=== PATIENT | female | born 1965 | race Hispanic/Latino ===

== ENCOUNTER → 2017-10-25 | Outpatient (CLI) | payer BC | END | disposition home or self-care (01) | LOC: RAH 15:05 | PROVIDERS: ATTEND Obstetrics & Gynecology | DX: Z12.31 Encounter for screening mammogram for malignant neoplasm of breast (principal) | CPT/HCPCS: 77067 ==

== ENCOUNTER → 2018-10-29 | Outpatient (CLI) | payer BC | END | disposition home or self-care (01) | LOC: RAH 15:33 | PROVIDERS: ATTEND Obstetrics & Gynecology | DX: Z12.31 Encounter for screening mammogram for malignant neoplasm of breast (principal) | CPT/HCPCS: 77067 ==

== ENCOUNTER 2023-04-17 07:01 | Day surgery (SDC) | payer BC ==
[2023-04-12 10:25] LABS: BASOPHILS % (AUTO) 0.3 % (0.0-5.0); EOSINOPHILS % (AUTO) 1.6 % (0.0-8.0); HEMATOCRIT 39.6 % (36-48); LYMPHOCYTES % (AUTO) 31.7 % (21.0-51.0); MEAN CORPUSCULAR HGB CONC 32.8 g/dL (32.0-36.0); MEAN CORPUSCULAR VOLUME 91.2 fL (79-99); NEUTROPHILS % (AUTO) 60.1 % (40.0-77.0); PLATELET COUNT (AUTO) 162 K/uL (130-400); RED BLOOD CELL COUNT(AUTO) 4.34 MIL/uL (4.00-5.50); WHITE BLOOD COUNT (AUTO) 6.7 K/uL (4.8-10.8)
[2023-04-12 10:26] LABS: APPEARANCE,URINE CLEAR (CLEAR); BILIRUBIN,URINE NEGATIVE (NEGATIVE); COLOR,URINE LIGHT-YELLOW (YELLOW); GLUCOSE, URINE (UA) NEGATIVE (NEGATIVE); KETONES,URINE NEGATIVE (NEGATIVE); LEUKOCYTE ESTERASE ,URINE 25 Leu/uL (NEGATIVE); NITRATE,URINE NEGATIVE (NEGATIVE); OCCULT BLOOD,URINE NEGATIVE (NEGATIVE); PH,URINE 5.5 (5.0-8.0); PROTEIN,URINE NEGATIVE (NEGATIVE); UROBILINOGEN,URINE 0.2 mg/dL (0.2-1.0)
[2023-04-12 10:38] LABS: CREATININE 0.7 mg/dL (0.5-1.5); POTASSIUM 3.6 mmol/L (3.5-5.1); TOTAL PROTEIN, SERUM 8.4 g/dL (6.0-8.3)
[2023-04-12 10:39] LABS: INR 0.94 (0.85-1.15)
[2023-04-12 10:40] VITALS: BP 156/72
[2023-04-12 10:41] LABS: PARTIAL THROMBOPLASTIN TIME 29.2 SEC (26.3-35.5)
[2023-04-12 10:55] LABS: BACTERIA,URINE RARE /HPF (None Seen); MUCUS,URINE RARE LPF (None Seen); RBC,URINE 0-1 /HPF (0-1); SQUAMOUS EPITHELIAL CELL,UR RARE /HPF (0-2)
[~2023-04-17] VITALS: Ht 149.9 cm; Wt 70.6 kg
[2023-04-17] VITALS (18 sets, daily range): BP systolic 94–132; BP diastolic 44–70
[~2023-04-17 07:01] MED LIST: ENAL1TAB PO; ERGO500093 PO; ESTR0.5T PO; LEVO88TA7 PO; METF-444 PO; OMEP40CA21 PO; PIOG30TA70 PO; ROSU20TA73 PO
[2023-04-17] MEDS ORDERED: 0.9%NACL 1000ML 1,000 ML IV ONE (08:30)
[2023-04-17] MEDS ORDERED: CEFAZOLIN SODIUM 1 GM VIAL ONE (08:30)
[2023-04-17] MEDS ORDERED: SUCCINYLCHOLINE CHLORIDE 20 MG/ML 10 ML VIAL ONE (11:02)
[2023-04-17] MEDS ORDERED: ONDANSETRON 4MG INJ ONE (11:03)
[2023-04-17] MEDS ORDERED: FENTANYL CITRATE PF 50 MCG/1 ML 2ML VIAL ONE (11:03)
[2023-04-17] MEDS ORDERED: MIDAZOLAM HCL 1 MG/ML 2ML VIAL ONE (11:03)
[2023-04-17] MEDS ORDERED: PROPOFOL 10 MG/ML 20ML VIAL IV ONE (11:03)
[2023-04-17] MEDS ORDERED: ROCURONIUM 10MG/1ML SYR 10 MG/ML ML ONE (11:08)
[2023-04-17] MEDS ORDERED: BUPIVACAINE/PF 0.5% 10ML VIAL ONE (11:13)
[2023-04-17] MEDS ORDERED: CEFAZOLIN SODIUM 2 GM VIAL IVPB ONE (11:30)
[2023-04-17] MEDS ORDERED: EPHEDRINE SULFATE 50 MG/ML AMPULE ONE (11:59)
[2023-04-17] MEDS ORDERED: GLYCOPYRROLATE 1 MG/5 ML SYRINGE ONE (12:34)
[2023-04-17] MEDS ORDERED: NEOSTIGMINE 5MG/5ML SYR IV ONE (12:34)
[2023-04-17] MEDS ORDERED: MEPERIDINE-PF 25 MG/ML SYG ONE (12:57)
== END 2023-04-17 14:20 | disposition home or self-care (01) ==
LOC: DAH 07:01
PROVIDERS: ATTEND Student in an Organized Health Care Education/Training Program
DX: D17.1 Benign lipomatous neoplasm of skin and subcutaneous tissue of trunk (principal); I10 Essential (primary) hypertension; E11.9 Type 2 diabetes mellitus without complications; E66.9 Obesity, unspecified; Z90.89 Acquired absence of other organs; Z98.51 Tubal ligation status; Z90.710 Acquired absence of both cervix and uterus; Z98.890 Other specified postprocedural states; Z82.49 Family history of ischemic heart disease and other diseases of the circulatory system; Z83.3 Family history of diabetes mellitus; Z80.0 Family history of malignant neoplasm of digestive organs; Z79.84 Long term (current) use of oral hypoglycemic drugs; Z79.890 Hormone replacement therapy; Z79.01 Long term (current) use of anticoagulants; Z79.899 Other long term (current) drug therapy; Z68.27 Body mass index [BMI] 27.0-27.9, adult
CPT/HCPCS: 80053; 85025; 85610; 85730; 87426; 81001; 36415; 27043; 82948 ×2; A6260; A4663; A4452; J3010; J0690 ×2; J3490 ×3; J2710; J0330; J7030; J2250; J2704; J2405; J2175; A4215; A4223; A4222; A4221; A4600

== ENCOUNTER → 2023-10-16 | Outpatient (CLI) | payer BC ==
[~2023-10-16] MED LIST changes: -ESTR0.5T PO; +ESTR0.5T2 PO
== END | disposition home or self-care (01) ==
LOC: RAH 14:13
PROVIDERS: ATTEND Nurse Practitioner
DX: Z12.31 Encounter for screening mammogram for malignant neoplasm of breast (principal)
CPT/HCPCS: 77067

== ENCOUNTER 2024-01-31 22:04 | Inpatient (IN) | payer BC ==
[~2024-01-31] VITALS: Ht 149.9 cm; Wt 72.1 kg
[2024-01-31 22:26] LABS: BASOPHILS # (AUTO) 0.05 K/uL (0.00-0.20); BASOPHILS % (AUTO) 0.4 % (0.0-5.0); EOSINOPHILS # (AUTO) 0.13 K/uL (0.00-0.70); EOSINOPHILS % (AUTO) 0.9 % (0.0-8.0); HEMATOCRIT 35.4 % (36-48); IMMATURE GRANULOCYTE ABSOLUTE 0.09 K/uL (0-1); LYMPHOCYTES % (AUTO) 21.4 % (21.0-51.0); MEAN CORPUSCULAR HEMOGLOBIN 31.3 pg (27.0-33.0); MEAN CORPUSCULAR HGB CONC 34.2 g/dL (32.0-36.0); MEAN CORPUSCULAR VOLUME 91.5 fL (79-99); MONOCYTES % (AUTO) 7.1 % (3.0-13.0); NEUTROPHILS # (AUTO) 9.8 K/uL (1.8-7.7); NEUTROPHILS % (AUTO) 69.6 % (40.0-77.0); PLATELET COUNT (AUTO) 158 K/uL (130-400); RED BLOOD CELL COUNT(AUTO) 3.87 MIL/uL (4.00-5.50); RED CELL DISTRIBUTION WIDTH 13.9 % (11.0-15.5); WHITE BLOOD COUNT (AUTO) 14.1 K/uL (4.8-10.8)
[2024-01-31 22:37] LABS: CREATININE 1.2 mg/dL (0.5-1.0); POTASSIUM 3.7 mmol/L (3.5-5.1)
[2024-01-31 22:41] LABS: ALBUMIN 3.3 g/dL (3.5-5.0); BILIRUBIN,TOTAL 0.3 mg/dL (0.2-1.0); TOTAL PROTEIN, SERUM 7.2 g/dL (6.0-8.3)
[2024-01-31 23:01] LABS: APPEARANCE,URINE CLOUDY (CLEAR); BILIRUBIN,URINE NEGATIVE (NEGATIVE); COLOR,URINE LIGHT-YELLOW (YELLOW); GLUCOSE, URINE (UA) NEGATIVE (NEGATIVE); KETONES,URINE NEGATIVE (NEGATIVE); LEUKOCYTE ESTERASE ,URINE 25 Leu/uL (NEGATIVE); NITRATE,URINE NEGATIVE (NEGATIVE); OCCULT BLOOD,URINE SMALL (NEGATIVE); PROTEIN,URINE NEGATIVE (NEGATIVE); UROBILINOGEN,URINE 0.2 mg/dL (0.2-1.0)
[2024-01-31 23:02] LABS: ADD UA MICROSCOPIC YES
[2024-01-31 23:06] LABS: MUCUS,URINE RARE LPF (None Seen); RBC,URINE 26-50 /HPF (0-1); SQUAMOUS EPITHELIAL CELL,UR RARE /HPF (0-2); WBC,URINE 0-1 /HPF (0-1)
[2024-01-31] MEDS: 0.9%NACL 1000ML 1,000 ML IV ONE (23:43)
[2024-02-01] MEDS: ONDANSETRON 4MG INJ IVP ONE (00:01)
[2024-02-01] MEDS: MORPHINE 2 MG SYG IVP ONE (00:01)
[2024-02-01] MEDS ORDERED: IOHEXOL 350 MG/ML 100ML INFUS..BTL IV ONE (00:03)
[2024-02-01] MEDS: AZITHROMYCIN 500MG+NS 250ML 250 ML IV ONE (01:40)
[2024-02-01] MEDS: 0.9%NACL 1000ML 2,040 ML IV ONE (01:41)
[2024-02-01] MEDS: CEFTRIAXONE 1G VIAL 2 GM in 0.9%NACL 100ML 100 ML IV ONE (01:41)
[2024-02-01] MEDS: CEFTRIAXONE 1G VIAL ONE ×2 (01:42→09:05)
[2024-02-01] MEDS: CEFTRIAXONE 2GM VIAL ONE (03:27)
[2024-02-01] MEDS ORDERED: MAGNESIUM 2GM PREMIX 50ML 50 ML IV PRN (03:30)
[2024-02-01] MEDS ORDERED: GLUCAGON 1MG KIT 1 MG ML IM PRN (03:30)
[2024-02-01] MEDS ORDERED: DEXTROSE 50%-WATER 50 ML DISP.SYRIN IV PRN (03:30)
[2024-02-01] MEDS: 0.9%NACL 1000ML 1,000 ML IV SCH (05:13)
[2024-02-01 05:39] LABS: BASOPHILS # (AUTO) 0.03 K/uL (0.00-0.20); BASOPHILS % (AUTO) 0.2 % (0.0-5.0); HEMATOCRIT 36.7 % (36-48); IMMATURE GRANULOCYTE ABSOLUTE 0.07 K/uL (0-1); LYMPHOCYTES % (AUTO) 6.7 % (21.0-51.0); MEAN CORPUSCULAR HEMOGLOBIN 31.1 pg (27.0-33.0); MEAN CORPUSCULAR HGB CONC 33.5 g/dL (32.0-36.0); MEAN CORPUSCULAR VOLUME 92.9 fL (79-99); MONOCYTES # (AUTO) 0.5 K/uL (0.1-1.0); MONOCYTES % (AUTO) 3.6 % (3.0-13.0); NEUTROPHILS # (AUTO) 13.3 K/uL (1.8-7.7); PLATELET COUNT (AUTO) 146 K/uL (130-400); RED BLOOD CELL COUNT(AUTO) 3.95 MIL/uL (4.00-5.50); WHITE BLOOD COUNT (AUTO) 14.9 K/uL (4.8-10.8)
[2024-02-01] MEDS: INSULIN HUMULIN R 100 UNIT/ML 3ML SQ SCH (06:00)
[2024-02-01 06:05] LABS: ALBUMIN 3.2 g/dL (3.5-5.0); BILIRUBIN,TOTAL 0.2 mg/dL (0.2-1.0); CREATININE 1.2 mg/dL (0.5-1.0); MAGNESIUM 1.8 mg/dL (1.80-2.40); POTASSIUM 4.1 mmol/L (3.5-5.1); THYROID STIMULATING HORMONE 1.25 uIU/mL (0.36-3.74); TOTAL PROTEIN, SERUM 7.4 g/dL (6.0-8.3)
[2024-02-01 06:09] LABS: INR <= 0.93 (0.85-1.15); PROTHROMBIN TIME 10.7 SEC (9.6-11.6)
[2024-02-01 06:10] LABS: PARTIAL THROMBOPLASTIN TIME 25.5 SEC (26.3-35.5)
[2024-02-01 06:22] LABS: WBC MORPHOLOGY CONSISTENT W/DIFF
[2024-02-01 06:26] LABS: HEMOGLOBIN A1C 6.3 % (4.0-6.0)
[2024-02-01] MEDS: CEFTRIAXONE 1G VIAL 1 GM in 0.9%NACL 100ML 100 ML IV SCH (09:03)
[2024-02-01] MEDS ORDERED: ACETAMINOPHEN 325 MG TAB PO PRN ×2 (10:30)
[2024-02-01] MEDS: ONDANSETRON 4MG INJ IV PRN (10:46)
[2024-02-01] MEDS: MORPHINE 2 MG SYG IVP PRN (10:47)
[2024-02-01] MEDS: TAMSULOSIN HCL 0.4 MG CAP.ER.24H ONE (13:13)
[2024-02-01 16:45] VITALS: BP 134/59; PULSE 80; RESP 16
[2024-02-01 20:00] VITALS: BP 134/57; PULSE 74; RESP 16
[2024-02-01 20:08] VITALS: O2SAT 99
[2024-02-01] MEDS ORDERED: LEVO100 PO (20:24)
[2024-02-01] MEDS ORDERED: ESTR1TAB21 PO (20:24)
[2024-02-01] MEDS: CEFTRIAXONE 1G VIAL IVPB SCH (20:50)
[2024-02-01 22:00] VITALS: O2SAT 97
[2024-02-02] VITALS (27 sets, daily range): BP systolic 130–155; BP diastolic 52–72; PULSE 51–89; RESP 15–23; O2SAT 96–97
[2024-02-02 05:02] LABS: MEAN CORPUSCULAR HEMOGLOBIN 30.5 pg (27.0-33.0); MEAN CORPUSCULAR HGB CONC 32.8 g/dL (32.0-36.0); RED BLOOD CELL COUNT(AUTO) 3.44 MIL/uL (4.00-5.50); RED CELL DISTRIBUTION WIDTH 14.3 % (11.0-15.5); WHITE BLOOD COUNT (AUTO) 8.8 K/uL (4.8-10.8)
[2024-02-02 05:14] LABS: CREATININE 0.7 mg/dL (0.5-1.0); POTASSIUM 3.1 mmol/L (3.5-5.1)
[2024-02-02] MEDS: TAMSULOSIN HCL 0.4 MG CAP.ER.24H PO SCH (09:00)
[2024-02-02] MEDS ORDERED: IOHEXOL-350 50ML VIAL IV ONE (16:14)
[2024-02-02] MEDS ORDERED: PROPOFOL 10 MG/ML 20ML VIAL IV ONE (16:37)
[2024-02-02] MEDS ORDERED: LIDOCAINE PF 100MG/5ML (2%) SYRINGE 5ML ONE (16:39)
[2024-02-02] MEDS ORDERED: MIDAZOLAM HCL 1 MG/ML 2ML VIAL ONE (16:39)
[2024-02-02] MEDS ORDERED: SUCCINYLCHOLINE CHLORIDE 20 MG/ML 10 ML VIAL ONE (16:41)
[2024-02-02] MEDS ORDERED: ROCURONIUM BROMIDE 10MG/1ML 5ML VL ONE (16:42)
[2024-02-02] MEDS ORDERED: FENTANYL CITRATE PF 50 MCG/1 ML 2ML VIAL ONE (16:42)
[2024-02-02] MEDS ORDERED: GLYCOPYRROLATE 0.2 MG/ML 5 ML VIAL ONE (17:21)
[2024-02-02] MEDS: ONDANSETRON 4MG INJ ONE (18:27)
[2024-02-02] MEDS: MEPERIDINE-PF 25 MG/ML SYG ONE (18:28)
[2024-02-02] MEDS: OXYBUTYNIN CHLORIDE 5 MG TABLET ONE (21:43)
[2024-02-02] MEDS: PHENAZOPYRIDINE HCL 200 MG TABLET PO PRN (22:36)
[2024-02-02] MEDS: PHENAZOPYRIDINE HCL 200 MG TABLET ONE (22:37)
[2024-02-03 04:00] LABS: BASOPHILS # (AUTO) 0.04 K/uL (0.00-0.20); BASOPHILS % (AUTO) 0.5 % (0.0-5.0); EOSINOPHILS % (AUTO) 1.2 % (0.0-8.0); HEMATOCRIT 32.4 % (36-48); IMMATURE GRANULOCYTE ABSOLUTE 0.03 K/uL (0-1); LYMPHOCYTES # (AUTO) 1.9 K/uL (1.0-4.8); LYMPHOCYTES % (AUTO) 22.7 % (21.0-51.0); MEAN CORPUSCULAR HEMOGLOBIN 30.3 pg (27.0-33.0); MEAN CORPUSCULAR VOLUME 91.8 fL (79-99); MONOCYTES # (AUTO) 0.6 K/uL (0.1-1.0); MONOCYTES % (AUTO) 7.5 % (3.0-13.0); NEUTROPHILS # (AUTO) 5.8 K/uL (1.8-7.7); NEUTROPHILS % (AUTO) 67.7 % (40.0-77.0); PLATELET COUNT (AUTO) 144 K/uL (130-400); RED BLOOD CELL COUNT(AUTO) 3.53 MIL/uL (4.00-5.50); RED CELL DISTRIBUTION WIDTH 14.2 % (11.0-15.5); WHITE BLOOD COUNT (AUTO) 8.5 K/uL (4.8-10.8)
[2024-02-03 04:08] LABS: CREATININE 0.7 mg/dL (0.5-1.0)
[2024-02-03 04:20] VITALS: BP 136/58; PULSE 68; RESP 16
[2024-02-03] MEDS: POTASSIUM CHLORIDE 20MEQ/100ML 100 ML IV PRN (04:30)
[2024-02-03] MEDS ORDERED: POTASSIUM CHLORIDE 10% ELIXIR 20 MEQ/15 ML UDCUP PO PRN (04:30)
[2024-02-03] MEDS ORDERED: POTASSIUM CHLORIDE 20MEQ/100ML 100 ML IV PRN (04:30)
[2024-02-03] MEDS: KCL 20 MEQ ERTAB PO ONE (04:31)
[2024-02-03] MEDS: KCL 20 MEQ ERTAB PO PRN (06:03)
[2024-02-03] MEDS: INSULIN HUMULIN R 100 UNIT/ML 3ML SQ SCH (06:07)
[2024-02-03 08:00] VITALS: BP_SYST 133; BP_SYST 144; BP_DIAS 69; BP_DIAS 96; PULSE 62; PULSE 97; RESP 18; O2SAT 97
[2024-02-03] MEDS: OXYBUTYNIN CHLORIDE 5 MG TABLET PO SCH (08:34)
[2024-02-03 12:00] VITALS: BP 137/50; PULSE 63; RESP 18
[2024-02-03] MEDS ORDERED: OXYB5TAB20 PO (13:33)
[2024-02-03] MEDS ORDERED: TAMS-1 PO (13:33)
[2024-02-03] MEDS ORDERED: CEPH500B PO (14:15)
== END 2024-02-03 16:20 | disposition home or self-care (01) | DRG 853 ==
LOC: EDH 22:04 → EDHIP 02-01 03:18 → 4AH 02-01 13:47
PROVIDERS: ADMIT Hospitalist; ATTEND Hospitalist
PROC: BT1D1ZZ Fluoroscopy of Right Kidney, Ureter and Bladder using Low Osmolar Contrast (ICD-10-PCS; 2024-02-02)
PROC: 0TF38ZZ Fragmentation in Right Kidney Pelvis, Via Natural or Artificial Opening Endoscopic (ICD-10-PCS; 2024-02-02)
PROC: 0TC68ZZ Extirpation of Matter from Right Ureter, Via Natural or Artificial Opening Endoscopic (ICD-10-PCS; 2024-02-02)
PROC: 0T768DZ Dilation of Right Ureter with Intraluminal Device, Via Natural or Artificial Opening Endoscopic (ICD-10-PCS; principal; 2024-02-02 16:41)
DX: A41.9 Sepsis, unspecified organism (principal); J18.9 Pneumonia, unspecified organism; N13.6 Pyonephrosis; N20.2 Calculus of kidney with calculus of ureter; N17.9 Acute kidney failure, unspecified; E78.00 Pure hypercholesterolemia, unspecified; E11.9 Type 2 diabetes mellitus without complications; I10 Essential (primary) hypertension; R31.0 Gross hematuria; E03.9 Hypothyroidism, unspecified; Z90.710 Acquired absence of both cervix and uterus; Z83.3 Family history of diabetes mellitus; Z82.5 Family history of asthma and other chronic lower respiratory diseases; Z82.49 Family history of ischemic heart disease and other diseases of the circulatory system; Z82.0 Family history of epilepsy and other diseases of the nervous system; Z79.84 Long term (current) use of oral hypoglycemic drugs; Z79.899 Other long term (current) drug therapy
CPT/HCPCS: 36415; 71045; 71250; 74178; 74420; 80048; 80053; 81001; 82150; 82360; 82948; 83036; 83605; 83690; 83735; 84145; 84443; 84484; 85025; 85027; 85610; 85730; 87040; 87088; 93005; 96365; 96372; G0378; J0330; J0456; J0696; J2001; J2175; J2250; J2270; J2405; J2704; J3010; J3480; J3490; J7030; Q9967